=== PATIENT | male | born 1995 | race Caucasian/White ===

== ENCOUNTER 2021-04-15 16:58 | Emergency (ER) | payer SELFPAY ==
[2021-04-15 17:25] VITALS: BP 134/74; PULSE 79; RESP 16; TEMP 98.2
--- NOTE | 2021-04-15 18:38 | ED ---
General Adult HPI - General Chief complaint: Recheck/Abnormal Lab/Rx Stated complaint: Covid test Time Seen by Provider: 04/15/21 17:25 Source: patient, RN notes reviewed, old records reviewed Mode of arrival: ambulatory Limitations: no limitations - History of Present Illness Initial comments: Patient is a 25-year-old male who presents emergency department seeking COVID-19 testing. [place] He is [place]. Patient was vaccinated but not booster. Denies any fevers, chills, cough, sick contacts. Has no other acute complaint at this time. - Related Data Allergies Allergy/AdvReac Type Severity Reaction Status Date / Time No Known Allergies Allergy Verified 04/15/21 17:24 Review of Systems ROS Statement: Those systems with pertinent positive or pertinent negative responses have been documented in the HPI. Review of Systems: CONST: Denies fever EYES: Denies blurry vision ENT: Denies nasal congestion C/V: Denies Chest pain RESP: Denies shortness of breath GI: Denies abdominal pain : Denies dysuria SKIN: Denies rash. MSK: Denies joint pain. NEURO: Denies headache ROS Other: All systems not noted in ROS Statement are negative. Past Medical History Past Medical History: No Reported History History of Any Multi-Drug Resistant Organisms: None Reported Past Surgical History: Orthopedic Surgery Past Psychological History: No Psychological Hx Reported Smoking Status: Never smoker Past Alcohol Use History: None Reported Past Drug Use History: Marijuana General Exam - General Exam Comments Initial Comments: General: Appears in no acute distress. HEAD: Normal with no signs of head trauma. EYES: EOMI ENT: Hearing grossly intact RESPIRATORY: Clear breath sounds bilaterally. No wheezes, rales, or rhonchi. No hypoxia. No increased work of breathing. C/V: Regular rate and rhythm. S1 and S2 auscultated. Peripheral pulses 2+ and intact. ABD: Abdomen is nondistended EXT: No obvious deformity SKIN: No rashes or lesions observed on exposed skin. NEURO: Alert and oriented 4. Limitations: no limitations Course Vital Signs 04/15/21 17:22 Temperature 98.2 F Pulse Rate 79 Respiratory 16 Rate Blood Pressure 134/74 O2 Sat by Pulse 100 Oximetry Medical Decision Making - Medical Decision Making Based on patient's presentation and physical exam, he is seeking COVID-19 [place] into [place]. He has no symptoms. Was vaccinated but not boosted for COVID-19. Covid swab was obtained and will be sent. I do not believe that he requires any further laboratory studies or imaging at this time. Covid swab is negative. I informed the patient. He will be given documentation. Patient will be discharged home in good condition. He was in agreement this plan. - Lab Data Lab Results 04/15/21 Range/Units 17:26 Coronavirus (PCR) Not Detected (Not Detectd) Disposition Clinical Impression: Encounter for screening for COVID-19 Disposition: HOME SELF-CARE Condition: Good Is patient prescribed a controlled substance at d/c from ED?: No Referrals: None,Stated [Primary Care Provider] - 1-2 days
== END 2021-04-15 18:54 | disposition home or self-care (01) ==
LOC: EC 16:58
DX: Z20.822 Contact with and (suspected) exposure to COVID-19 (principal)
CPT/HCPCS: 87635; 99283